=== PATIENT | male | born 1970 | race Caucasian/White ===

== ENCOUNTER → 2020-04-24 15:08 | Outpatient (BNVA) | payer OTHER, SELFPAY | PROVIDERS: PCP Internal Medicine; Referring Provider Internal Medicine; Visit Provider Internal Medicine Endocrinology, Diabetes & Metabolism | DX: Z76.89 Persons encountering health services in other specified circumstances (principal) ==

== ENCOUNTER 2020-07-31 07:41 | Outpatient (REF) | payer OTHER, SELFPAY ==
[2020-07-31 10:23] LABS: Estimated Average Glucose 169 mg/dL; Hemoglobin A1c % 7.5 %
[2020-07-31 10:42] LABS: Alanine Aminotransferase 32 U/L (0-40); Albumin Level 4.4 g/dL (3.5-5.0); Alkaline Phosphatase 81 U/L (39-117); Anion Gap 13 (12-20); Aspartate Amino Transferase 14 U/L (5-37); Bilirubin Total 0.8 mg/dL (0.0-1.0); Blood Urea Nitrogen 13 mg/dL (9-16); Calcium 9.1 mg/dL (8.4-10.2); Carbon Dioxide 30 mmol/L (22-29); Chloride 98 mmol/L (96-108); Estimated Glomerular Filt Rate > 60; Glucose Fasting 256 mg/dL (60-99); Potassium 4.4 mmol/L (3.3-5.1); Sodium 137 mmol/L (135-145); Total Protein 6.6 g/dL (6.5-8.0)
[2020-07-31 11:04] LABS: Vitamin D 25-OH Total 21.7 ng/mL (>30)
== END 2020-07-31 07:42 | disposition home or self-care (01) ==
LOC: HO.10HDL 07:41
PROVIDERS: Visit Provider Internal Medicine Endocrinology, Diabetes & Metabolism
DX: E11.65 Type 2 diabetes mellitus with hyperglycemia (principal); E11.21 Type 2 diabetes mellitus with diabetic nephropathy; E11.42 Type 2 diabetes mellitus with diabetic polyneuropathy; I20.9 Angina pectoris, unspecified; I10 Essential (primary) hypertension; E78.5 Hyperlipidemia, unspecified; E55.9 Vitamin D deficiency, unspecified; E66.9 Obesity, unspecified; Z88.8 Allergy status to other drugs, medicaments and biological substances; Z91.011 Allergy to milk products; Z79.84 Long term (current) use of oral hypoglycemic drugs; Z79.899 Other long term (current) drug therapy
CPT/HCPCS: 36415; 80053; 82306; 82947; 83036; 99212

== ENCOUNTER 2020-08-19 16:24 | Outpatient (REF) | payer OTHER, SELFPAY ==
--- NOTE | ~2020-08-19 | MR_ITS ---
EXAMINATION: MRI OF THE BRAIN WITHOUT CONTRAST CLINICAL INFORMATION: Migraine. COMPARISON: There are no prior studies available for comparison. TECHNIQUE: MRI of the brain was obtained using routine sequences without contrast. FINDINGS: No diffusion abnormalities are identified to suggest an acute or subacute infarct. No mass effect or midline shift is seen. The ventricles are normal in size. Brain parenchymal signal is unremarkable. No extra-axial fluid collections are seen. The brainstem and cerebellum are normal. No pathologic magnetic susceptibility artifact is identified on the gradient refocused acquisition. The craniovertebral junction, marrow signal, and midline structures are normal. The cerebellar tonsils have normal contour and position. The pituitary axis is normal. The major intracranial flow-voids at the level of the [place] are preserved. The dural venous sinus flow-voids are maintained. The mastoid air cells are well-aerated. There is minimal mucoperiosteal thickening of the ethmoid sinuses. MR/MR head/brain wo con IMPRESSION: 1. There are no acute bleeds or infarcts. No masses are demonstrated. The cerebellar tonsils and pituitary axis appear normal.
== END 2020-08-19 16:25 | disposition home or self-care (01) ==
LOC: HO.MRI 16:24
PROVIDERS: Visit Provider Internal Medicine
DX: G43.909 Migraine, unspecified, not intractable, without status migrainosus (principal)
CPT/HCPCS: 70551

== ENCOUNTER 2020-11-25 06:16 | Day surgery (SDC) | payer OTHER, SELFPAY ==
--- NOTE | 2020-11-19 14:11 | HO.ANESPROP2 ---
HPI - Anesthesia Eval Consult details Narrative: 50yo M for Colonoscopy PMF Active Problems Active Problems: All Active Problems (Updated 08/13/20 @ 18:47 by Bebe Saini MD) GERD (gastroesophageal reflux disease) (Acute) Migraines (Acute) Acute sinusitis (Acute) Obesity (Acute) Diabetes (Acute) Lower back pain (Acute) Encounter for removal of sutures (Acute) Angina pectoris (Acute) Sleep apnea, obstructive (Acute) Obesity (BMI 30-39.9) (Acute) Vitamin D deficiency (Acute) Dyslipidemia (Acute) Diabetic polyneuropathy associated with type 2 diabetes mellitus (Acute) Diabetic nephropathy associated with type 2 diabetes mellitus (Acute) Diabetes type 2, uncontrolled (Acute) Hypertension (Acute) Past Medical History Medical History Angina pectoris Diabetes Diabetes type 2, uncontrolled Diabetic nephropathy associated with type 2 diabetes mellitus Diabetic polyneuropathy associated with type 2 diabetes mellitus Dyslipidemia Encounter for removal of sutures GERD (gastroesophageal reflux disease) Hypertension Lower back pain Migraines Obesity Obesity (BMI 30-39.9) Sleep apnea, obstructive Vitamin D deficiency Family History Family History Father Diabetes Thyroid cancer Mother Diabetes Myocardial infarction Sister Diabetes Sister Diabetes Cancer of [place] vaginalis Surgical History Surgical History History of right inguinal hernia repair Hx of laminectomy Social History Social History Alcohol intake: current Alcohol intake frequency: a few times a month Alcohol type: hard liquor Patient Tobacco Use Status: Never used Tobacco Use of substances other than those prescribed or required for medical reasons: No Have you been hit, kicked, punched, or otherwise hurt by someone within the past year? If so, by whom?: No Are you DNR?: No Advance Directives: No Advance Directives Information Provided: Yes Meds Allergies Allergy/AdvReac Type Severity Reaction Status Date / Time glipizide Allergy Severe pruritus Verified 11/18/20 15:36 dulaglutide [Trulicity] AdvReac Severe diarrhea Verified 11/18/20 15:36 milk Allergy Mild vomitting Uncoded 11/18/20 15:36 Home Medications Medication Instructions Recorded Confirmed Last Taken Type lancets 28 gauge #100 ea 04/24/20 08/13/20 Unknown History blood sugar diagnostic #10 ea 07/31/20 08/13/20 Unknown History enalapril maleate 10 mg tablet 10 mg PO DAILY 08/13/20 11/18/20 Unknown History gabapentin 400 mg capsule 400 mg PO TID 08/13/20 11/18/20 Unknown History pioglitazone 30 mg tablet 15 mg PO DAILY tab 08/13/20 11/18/20 Unknown History cyclobenzaprine 1 tab PO BEDTIME PRN 11/18/20 11/18/20 Unknown History Exam Exam Date and Time: November 19, 2020 1411 Pertinent Lab Results Pertinent Lab Results: Laboratory Tests 04/26/19 07/31/20 09:20 07:50 WBC 7.8 Hgb 14.8 Hct 43.3 Plt Count 140 L Sodium 137 Potassium 4.4 Chloride 98 Carbon Dioxide 30 H BUN 13 Creatinine 0.93 Narrative Narrative: EKG 07/2020 NSR @ 85 2019 Nuc stress negative Assessment and Plan Assessment Anesthesia Assessment: Chart Reviewed
[2020-11-25 07:06] VITALS: BMI 86.6
[2020-11-25 07:10] VITALS: BP 146/87; PULSE 83; RESP 18; TEMP 36.4; O2SAT 96
[2020-11-25 07:24] LABS: Glucose, Whole Blood 139 mg/dL (60-115)
--- NOTE | 2020-11-25 07:26 | P.CONAN_ITS ---
[facility] Active Problems Active Problems: All Active Problems (Updated 08/13/20 @ 18:47 by Bebe guerra MD) GERD (gastroesophageal reflux disease) (Acute) Migraines (Acute) Acute sinusitis (Acute) Obesity (Acute) Diabetes (Acute) Lower back pain (Acute) Encounter for removal of sutures (Acute) Angina pectoris (Acute) Sleep apnea, obstructive (Acute) Obesity (BMI 30-39.9) (Acute) Vitamin D deficiency (Acute) Dyslipidemia (Acute) Diabetic polyneuropathy associated with type 2 diabetes mellitus (Acute) Diabetic nephropathy associated with type 2 diabetes mellitus (Acute) Diabetes type 2, uncontrolled (Acute) Hypertension (Acute) Past Medical History Medical History Angina pectoris Diabetes Diabetes type 2, uncontrolled Diabetic nephropathy associated with type 2 diabetes mellitus Diabetic polyneuropathy associated with type 2 diabetes mellitus Dyslipidemia Encounter for removal of sutures GERD (gastroesophageal reflux disease) Hypertension Lower back pain Migraines Obesity Obesity (BMI 30-39.9) Sleep apnea, obstructive Vitamin D deficiency Family History Family History Father Diabetes Thyroid cancer Mother Diabetes Myocardial infarction Sister Diabetes Sister Diabetes Cancer of [place] vaginalis Surgical History Surgical History History of right inguinal hernia repair Hx of laminectomy Social History Social History Alcohol intake: current Alcohol intake frequency: a few times a month Alcohol type: hard liquor Patient Tobacco Use Status: Never used Tobacco Use of substances other than those prescribed or required for medical reasons: No Have you been hit, kicked, punched, or otherwise hurt by someone within the past year? If so, by whom?: No Are you DNR?: No Advance Directives: No Advance Directives Information Provided: Yes Meds Allergies Allergy/AdvReac Type Severity Reaction Status Date / Time glipizide Allergy Severe pruritus Verified 11/18/20 15:36 dulaglutide [Trulicity] AdvReac Severe diarrhea Verified 11/18/20 15:36 milk Allergy Mild vomitting Uncoded 11/18/20 15:36 Active Medications: Current Medications Generic Name Dose Route Start Last Admin Trade Name Ninoska PRN Reason Stop Dose Admin Lactated Ringer's 1,000 mls @ 100 mls/hr 11/25/20 06:15 Lr IVCONT .Q10H [facility] Home Medications Medication Instructions Recorded Confirmed Last Taken Type lancets 28 gauge #100 ea 04/24/20 08/13/20 Unknown History blood sugar diagnostic #10 ea 07/31/20 08/13/20 Unknown History enalapril maleate 10 mg tablet 10 mg PO DAILY 08/13/20 11/18/20 Unknown History gabapentin 400 mg capsule 400 mg PO TID 08/13/20 11/18/20 Unknown History pioglitazone 30 mg tablet 15 mg PO DAILY tab 08/13/20 11/18/20 Unknown History cyclobenzaprine 1 tab PO BEDTIME PRN 11/18/20 11/18/20 Unknown History Exam Exam Date and Time: November 25, 2020 0726 Height,Weight and Vital Signs: Height 5 ft 4 in Weight 229 kg Last Vital Signs Temp 97.5 F 11/25/20 07:10 Pulse 83 11/25/20 07:10 Resp 18 11/25/20 07:10 BP 146/87 H 11/25/20 07:10 Pulse Ox 96 11/25/20 07:10 Pertinent Lab Results Pertinent Lab Results: Laboratory Tests 11/25/20 06:30 POC Glucose 139 H Airway Mallampati Class: IV TM Dist: >3cm Neck ROM: Full Heart: RRR Lungs: CTA
--- NOTE | 2020-11-25 07:30 | P.CONAN_ITS ---
[facility] Active Problems Active Problems: All Active Problems (Updated 08/13/20 @ 18:47 by Bebe guerra MD) GERD (gastroesophageal reflux disease) (Acute) Migraines (Acute) Acute sinusitis (Acute) Obesity (Acute) Diabetes (Acute) Lower back pain (Acute) Encounter for removal of sutures (Acute) Angina pectoris (Acute) Sleep apnea, obstructive (Acute) Obesity (BMI 30-39.9) (Acute) Vitamin D deficiency (Acute) Dyslipidemia (Acute) Diabetic polyneuropathy associated with type 2 diabetes mellitus (Acute) Diabetic nephropathy associated with type 2 diabetes mellitus (Acute) Diabetes type 2, uncontrolled (Acute) Hypertension (Acute) Past Medical History Medical History Angina pectoris Diabetes Diabetes type 2, uncontrolled Diabetic nephropathy associated with type 2 diabetes mellitus Diabetic polyneuropathy associated with type 2 diabetes mellitus Dyslipidemia Encounter for removal of sutures GERD (gastroesophageal reflux disease) Hypertension Lower back pain Migraines Obesity Obesity (BMI 30-39.9) Sleep apnea, obstructive Vitamin D deficiency Family History Family History Father Diabetes Thyroid cancer Mother Diabetes Myocardial infarction Sister Diabetes Sister Diabetes Cancer of [place] vaginalis Surgical History Surgical History History of right inguinal hernia repair Hx of laminectomy Social History Social History Alcohol intake: current Alcohol intake frequency: a few times a month Alcohol type: hard liquor Patient Tobacco Use Status: Never used Tobacco Use of substances other than those prescribed or required for medical reasons: No Have you been hit, kicked, punched, or otherwise hurt by someone within the past year? If so, by whom?: No Are you DNR?: No Advance Directives: No Advance Directives Information Provided: Yes Meds Allergies Allergy/AdvReac Type Severity Reaction Status Date / Time glipizide Allergy Severe pruritus Verified 11/18/20 15:36 dulaglutide [Trulicity] AdvReac Severe diarrhea Verified 11/18/20 15:36 milk Allergy Mild vomitting Uncoded 11/18/20 15:36 Active Medications: Current Medications Generic Name Dose Route Start Last Admin Trade Name Ninoska PRN Reason Stop Dose Admin Lactated Ringer's 1,000 mls @ 100 mls/hr 11/25/20 06:15 Lr IVCONT .Q10H [facility] Home Medications Medication Instructions Recorded Confirmed Last Taken Type lancets 28 gauge #100 ea 04/24/20 08/13/20 Unknown History blood sugar diagnostic #10 ea 07/31/20 08/13/20 Unknown History enalapril maleate 10 mg tablet 10 mg PO DAILY 08/13/20 11/18/20 Unknown History gabapentin 400 mg capsule 400 mg PO TID 08/13/20 11/18/20 Unknown History pioglitazone 30 mg tablet 15 mg PO DAILY tab 08/13/20 11/18/20 Unknown History cyclobenzaprine 1 tab PO BEDTIME PRN 11/18/20 11/18/20 Unknown History Exam Exam Date and Time: November 25, 2020 0730 Height,Weight and Vital Signs: Height 5 ft 4 in Weight 229 kg Last Vital Signs Temp 97.5 F 11/25/20 07:10 Pulse 83 11/25/20 07:10 Resp 18 11/25/20 07:10 BP 146/87 H 11/25/20 07:10 Pulse Ox 96 11/25/20 07:10 Pertinent Lab Results Pertinent Lab Results: Laboratory Tests 11/25/20 06:30 POC Glucose 139 H Airway Mallampati Class: IV TM Dist: >3cm Denture: Upper
[2020-11-25] MEDS: Lactated Ringers 1,000 ML 100 ML IVCONT (07:32)
--- NOTE | 2020-11-25 08:34 | MHC.SHP ---
Pre-Procedural Eval Section A The patient is an INPATIENT: No Section B Chief Complaint: screening Details of Present Illness: see H&P no changes Relevant Family History (Specify if Yes): No Relevant Social History: None Present Medications: see Short Stay Collaborative assessment Medical History: No relevant PMH History of Previous Operations: No relevant previous surgery Allergies: Allergies Allergy/AdvReac Type Severity Reaction Status Date / Time glipizide Allergy Severe pruritus Verified 11/18/20 15:36 dulaglutide [Trulicity] AdvReac Severe diarrhea Verified 11/18/20 15:36 milk Allergy Mild vomitting Uncoded 11/18/20 15:36 Review of Systems Sugical H&P ROS: Negative: Constitution, Cardiovascular, Respiratory, Neurological, Psychiatric, Hem-Onc, Allergic/Immunologic, Gastrointestinal, Genitourinary, Musculoskeletal, Integumentary, Endocrine and Eyes/Ears/Nose/Throat Exam Surgical H&P Exam: Normal: HEENT, Normal: Heart, Normal: Lungs, Normal: Extremities, Normal: Abdomen, Normal: Skin and Normal: Neurological Plan Diagnosis/Plan: Unchanged I have reviewed the history and physical and performed a pertinent physical examination on my patient. No changes have occurred unless specified.
--- NOTE | 2020-11-25 08:35 | P.BOP_ITS ---
Brief Operative Note Date of Service: 11/25/20 Pre-op diagnosis: screening Post-op diagnosis: same (colon polyp) Procedure: colonoscopy Surgeon: Jarred Jimenez Anesthesia: MAC Was an Library Science Professor used for this Procedure?: No Estimated blood loss (mL): 2 Pathology: other (polyp x1 rectum) Condition: stable Disposition: PACU
[2020-11-25 08:37] VITALS: BP 127/84; PULSE 85; RESP 16; TEMP 36.1; O2SAT 98
[2020-11-25 08:51] VITALS: BP 130/80; PULSE 82; RESP 17; TEMP 36.4; O2SAT 97
--- NOTE | 2020-11-25 09:08 | OP_ITS ---
SURGEON: Jarred Jimenez MD INDICATIONS: Colon cancer screening. PREOPERATIVE DIAGNOSIS: POSTOPERATIVE DIAGNOSIS: PROCEDURE PERFORMED: ESTIMATED BLOOD LOSS: COMPLICATIONS: ANESTHESIA: ASSISTANTS: SPECIMENS: PROCEDURES PERFORMED: Colonoscopy to the terminal ileum with biopsy. MEDICATIONS: Monitored anesthesia care. DESCRIPTION OF PROCEDURE: History and physical performed. The risks and benefits of the procedure were explained to the patient, and informed consent was obtained. The patient was placed in the left lateral decubitus position. A digital rectal exam was performed, was found to be normal. The Olympus pediatric video colonoscope was introduced into the rectum and advanced to the cecum without difficulty. The cecum was identified by transillumination, palpation, and identification of the ileocecal valve. Examination was performed. The scope was removed. He tolerated the procedure well and was returned to the recovery area in stable condition. FINDINGS: The terminal ileum was examined and it appeared normal. The visualized colonic mucosa was within normal limits without evidence of masses or ulcers. In the rectum, was a less than 5-mm sessile polyp which was removed with biopsy forceps. No other polyps were identified on retro. The quality of the prep was good. IMPRESSION: Colon polyp. RECOMMENDATIONS: Followup the biopsy results. MD GABE Gomez/KAVON / [id number]
--- NOTE | 2020-11-25 11:52 | HO.POSTANES ---
Post Anesthesia Evaluation Post Anesthesia Evaluation Vital Signs: Vital Signs Temp Pulse Resp BP Pulse Ox 11/25/20 08:51 97.6 F 82 17 130/80 97 11/25/20 08:37 97 F 85 16 127/84 98 11/25/20 07:10 97.5 F 83 18 146/87 H 96 Anesthesia: Monitored Mental Status: Awake Pain Control: Satisfactory Nausea/Vomiting: None Hydration: Adequate Anesthesia-Related Issues: No Anes. Related Issues
== END 2020-11-25 09:20 | disposition home or self-care (01) ==
PROVIDERS: PCP Internal Medicine; Visit Provider Internal Medicine Gastroenterology
PROC: 0DJD8ZZ Inspection of Lower Intestinal Tract, Via Natural or Artificial Opening Endoscopic (ICD-10-PCS; CPT 45378; principal; 2020-11-25 08:10)
DX: Z12.11 Encounter for screening for malignant neoplasm of colon (principal); K62.1 Rectal polyp; K21.9 Gastro-esophageal reflux disease without esophagitis; E11.21 Type 2 diabetes mellitus with diabetic nephropathy; E11.42 Type 2 diabetes mellitus with diabetic polyneuropathy; Z79.84 Long term (current) use of oral hypoglycemic drugs; I10 Essential (primary) hypertension; G47.33 Obstructive sleep apnea (adult) (pediatric); Z79.899 Other long term (current) drug therapy; Z88.8 Allergy status to other drugs, medicaments and biological substances
CPT/HCPCS: 45380; 82947; 88305

== ENCOUNTER 2021-01-02 13:05 | Emergency (ER) | payer OTHER, SELFPAY ==
[2021-01-02 13:58] VITALS: BP 133/77; PULSE 84; RESP 20; TEMP 35.3; O2SAT 97; BMI 40.8
== END 2021-01-02 16:40 | disposition left against medical advice (07) ==
PROVIDERS: Emergency Provider Emergency Medicine; PCP Internal Medicine
DX: R07.9 Chest pain, unspecified (principal)
CPT/HCPCS: 99282